=== PATIENT | male | born 1980 | race Caucasian/White ===

== ENCOUNTER 2018-08-24 22:34 | Emergency (ER) | payer BC ==
[2018-08-24] MEDS ORDERED: Diphtheria,Pertussis(Acell),Tetanus Vaccine 0.5 ML SDV IM ONE (22:50)
[2018-08-24] MEDS ORDERED: Lidocaine 1% 30 ML SDV INJECT ONE (22:50)
[2018-08-24] MEDS ORDERED: Bacitracin Oint 1 GM U/D Packet TOP ONE (22:50)
[2018-08-24] MEDS ORDERED: Diphtheria,Pertussis(Acell),Tetanus Vaccine 0.5 ML SDV ONE (23:00)
--- NOTE | 2018-08-24 23:11 | EDM.PDOC ---
ED HPI GENERAL MEDICAL PROBLEM - General Chief Complaint: Laceration Stated Complaint: HIT TOE WITH SOMETHING SHARP [id number] Time Seen by Provider: 08/24/18 22:50 Source of Information: Reports: Patient History Limitations: Reports: No Limitations - History of Present Illness INITIAL COMMENTS - FREE TEXT/NARRATIVE: This 37 yo male patient was brought to the ED due to a laceration to his left second toe. The patient reports he was ice fishing and stepped out of the ice shack (with sandals on) when he kicked the blades of the ice auger. The patient attempted to control bleeding while on the scene, but was unable to control the bleeding. Onset: Today Duration: Minutes: Location: Reports: Lower Extremity, Left Quality: Reports: Ache, Dull Severity: Moderate Improves with: Reports: None Worsens with: Reports: None Associated Symptoms: Reports: No Other Symptoms - Related Data Allergies Allergy/AdvReac Type Severity Reaction Status Date / Time No Known Allergies Allergy Verified 08/24/18 22:41 Home Meds: Home Meds . [No Known Home Meds] 08/24/18 [History] Past Medical History - Past Health History Medical/Surgical History: Denies Medical/Surgical History Social & Family History - Tobacco Use Smoking Status *Q: Never Smoker Second Hand Smoke Exposure: No - Recreational Drug Use Recreational Drug Use: No ED ROS GENERAL - Review of Systems Review Of Systems: ROS reveals no pertinent complaints other than HPI. ED EXAM, SKIN/RASH Exam: See Below Exam Limited By: No Limitations General Appearance: Alert, WD/WN, Mild Distress Eye Exam: Bilateral Eye: Normal Inspection Ears: Hearing Grossly Normal Nose: Normal Inspection Throat/Mouth: Normal Inspection Head: Atraumatic, Normocephalic Respiratory/Chest: No Respiratory Distress (Male) Exam: Deferred Rectal (Males) Exam: Deferred Extremities: Leg Pain (laceration of 2nd distal toe) Neurological: Alert, Oriented, CN II-XII Intact, Normal Cognition, Normal Gait Skin: Wound/Incision Location, Skin: Lower Extremity, Left Characteristics: Linear Lymphatic: No Adenopathy ED SKIN PROCEDURES - Laceration/Wound Repair Left Distal Toe - Second Lac/Wound length In cm: 1.5 Appearance: Subcutaneous Distal NVT: Neuro & Vascular Intact Anesthetic Type: Local Local Anesthesia - Lidocaine (Xylocaine): 1% Plain Local Anesthetic Volume: 3cc Skin Prep: Chlorhexidine (Hibiciens), Saline Exploration/Debridement/Repair: Wound Explored, Explored to Base, No Foreign Material Found Closed with: Sutures Suture Size: 4-0 # of Sutures: 5 Suture Type: Prolene, Interrupted, Simple Drain Placement: No Sterile Dressing Applied: Nurse Tetanus Status Addressed: Yes Complications: No Course - Vital Signs Last Recorded V/S: Last Vital Signs Temp 36.1 C 08/24/18 22:38 Pulse 75 08/24/18 22:38 Resp 18 08/24/18 22:38 BP 136/87 08/24/18 22:38 Pulse Ox 96 08/24/18 22:38 - Orders/Labs/Meds Orders: Active Orders 24 hr Category Date Time Status Vaccines to be Administered [RC] PER UNIT ROUTINE Care 08/24/18 22:50 Ordered Meds: Medications Discontinued Medications Generic Name Dose Route Start Last Admin Trade Name Freq PRN Reason Stop Dose Admin Bacitracin 1 dose 08/24/18 22:50 08/24/18 22:55 Bacitracin Oint 1 Gm TOP 08/24/18 22:51 1 dose ONETIME ONE Administration Diphtheria/Tetanus/Acell Pertussis 0.5 ml 08/24/18 22:50 08/24/18 23:05 Adacel IM 08/24/18 22:51 0.5 ml .ONCE ONE Administration Diphtheria/Tetanus/Acell Pertussis Confirm 08/24/18 23:00 Adacel Administered 08/24/18 23:01 Dose 0.5 ml .ROUTE .STK-MED ONE Lidocaine HCl 30 ml 08/24/18 22:50 08/24/18 22:52 Xylocaine-Mpf 1% INJECT 08/24/18 22:51 30 ml ONETIME ONE Administration Departure - Departure Time of Disposition: 23:09 Disposition: Home, Self-Care 01 Condition: Fair Clinical Impression: Toe laceration Qualifiers: Encounter type: initial encounter Toe: lesser toe Damage to nail status: without damage Foreign body presence: with foreign body Laterality: left Qualified Code(s): S91.125A - Laceration with foreign body of left lesser toe(s ) without damage to nail, initial encounter - Discharge Information *PRESCRIPTION DRUG MONITORING PROGRAM REVIEWED*: Not Applicable *COPY OF PRESCRIPTION DRUG MONITORING REPORT IN PATIENT MARY: Not Applicable Instructions: Laceration Care, Adult, [id number], Stitches, [place], or Adhesive Wound Closure, [id number] Forms: ED Department Discharge Care Plan Goals: The patient was advised of the examination results during the visit. The patient 's wound margins were well approximated during the visit. The patient was encouraged to keep the area clean and dry over the next 48 hours. The patient should have the sutures removed in 10-14 days. If the patient has any additional symptoms or concerns, the patient should either visit his primary care facility or return to the emergency department. - My Orders Last 24 Hours: My Active Orders 08/24/18 22:50 Vaccines to be Administered [RC] PER UNIT ROUTINE - Assessment/Plan Last 24 Hours: My Active Orders 08/24/18 22:50 Vaccines to be Administered [RC] PER UNIT ROUTINE
== END 2018-08-24 23:16 | disposition home or self-care (01) ==
LOC: DL.ED 22:34
DX: S91.115A Laceration without foreign body of left lesser toe(s) without damage to nail, initial encounter (principal); W22.8XXA Striking against or struck by other objects, initial encounter; Z23 Encounter for immunization
CPT/HCPCS: 12001; 90471; 90715; 99282

== ENCOUNTER 2024-05-03 19:17 | Emergency (ER) | payer BC ==
[2024-05-03] MEDS: Dexamethasone 4 MG/ML SDV PO ONE (20:35)
== END 2024-05-03 21:01 | disposition home or self-care (01) ==
LOC: DL.ED 19:17
DX: T63.461A Toxic effect of venom of wasps, accidental (unintentional), initial encounter (principal); Z86.16 Personal history of COVID-19
CPT/HCPCS: 99282; 99283; J1100